=== PATIENT | female | born 1960 | race Caucasian/White ===

== ENCOUNTER → 2018-04-02 | Outpatient (CLI) | payer OTHER ==
[~2018-04-02] MED LIST: ASPI-555 PO; BUDE10.2 IH; LEVA0.6319 IH; MOME17SP10 NS; MONT10TA21 PO; [UNRECOGNIZED DRUG - OTHER] PO
== END | disposition home or self-care (01) ==
LOC: RAH 08:58
PROVIDERS: ATTEND Nurse Practitioner Adult Health
DX: C25.9 Malignant neoplasm of pancreas, unspecified (principal)
CPT/HCPCS: 76700

== ENCOUNTER → 2019-03-18 | Outpatient (CLI) | payer OTHER | END | disposition home or self-care (01) | LOC: OIH 09:11 | PROVIDERS: ATTEND Nurse Practitioner Adult Health | DX: R05 Cough (principal) | CPT/HCPCS: 71046 ==

== ENCOUNTER 2019-07-18 05:52 | Day surgery (SDC) | payer OTHER ==
[~2019-07-18] VITALS: Ht 170.2 cm; Wt 74.8 kg
[~2019-07-18 05:52] MED LIST changes: -ASPI-555 PO; -LEVA0.6319 IH; +LORA-997 PO; -MOME17SP10 NS; -MONT10TA21 PO; +PROG100C11 PO; -[UNRECOGNIZED DRUG - OTHER] PO
[2019-07-18] MEDS ORDERED: SODIUM CHLORIDE 0.9% 1000ML 1,000 ML IV ONE (06:12)
[2019-07-18 06:32] VITALS: BP 114/72
[2019-07-18] MEDS ORDERED: MOME17N NS (06:38)
[2019-07-18] MEDS ORDERED: GLYCOPYRROLATE 1 MG/5 ML SYRINGE ONE (06:48)
[2019-07-18] MEDS ORDERED: PROPOFOL 10 MG/ML 20ML VIAL IV ONE (06:48)
[2019-07-18] MEDS ORDERED: LIDOCAINE HCL 1% 20 ML VIAL ONE (06:48)
[2019-07-18] MEDS ORDERED: EPHEDRINE SULFATE 50 MG/ML AMPULE ONE (07:05)
[2019-07-18 07:20] VITALS: BP 135/61
[2019-07-18 07:25] VITALS: BP 119/52
[2019-07-18 07:32] VITALS: BP 106/75
== END 2019-07-18 07:50 | disposition home or self-care (01) ==
LOC: DAH 05:52
PROVIDERS: ATTEND Internal Medicine Gastroenterology
DX: Z12.11 Encounter for screening for malignant neoplasm of colon (principal); K62.1 Rectal polyp; Z80.0 Family history of malignant neoplasm of digestive organs; Z86.010 Personal history of colon polyps; J45.909 Unspecified asthma, uncomplicated; Z98.890 Other specified postprocedural states; Z79.899 Other long term (current) drug therapy; Z11.59 Encounter for screening for other viral diseases
CPT/HCPCS: 36415; 45380; A4215; A4221; A4222; A4223; A4606; A4620; A4663; J2704; J3490 ×2; J7030; U0003; 43200

== ENCOUNTER → 2022-12-07 | Outpatient (CLI) | payer BC ==
[~2022-12-07] MED LIST changes: +MOME17SP4 NS
== END | disposition home or self-care (01) ==
LOC: RAH 12:53
PROVIDERS: ATTEND Nurse Practitioner Adult Health
DX: N95.1 Menopausal and female climacteric states (principal)
CPT/HCPCS: 77080